=== PATIENT | female | born 2000 | race Caucasian/White ===

== ENCOUNTER 2020-11-15 23:18 | Emergency (ER) | payer OTHER ==
[~2020-11-15 23:18] MED LIST: COLACE 100MG C100 MG PO; MACROBID 100 M100 MG PO; PYRIDIUM100 MG PO
[2020-11-16 02:08] LABS: HEMOGLOBIN 14.9 gm/dl (12.3-15.3); RED BLOOD COUNT 4.57 M/UL (4.00-5.10); WHITE BLOOD COUNT 14.6 K/UL (4.5-11.0)
[2020-11-16 02:29] LABS: BUN/CREATININE RATIO 14 (0-10)
[2020-11-16] MEDS ORDERED: BENTYL 20MG TAB20 MG PO (04:18)
[2020-11-16] MEDS ORDERED: ZOFRAN ODT 4 MG4 MG PO (04:18)
== END 2020-11-16 04:32 | disposition home or self-care (01) ==
LOC: ER1 23:18
PROVIDERS: Physician Assistant
DX: R10.11 Right upper quadrant pain (principal); R10.13 Epigastric pain; R11.0 Nausea; F17.210 Nicotine dependence, cigarettes, uncomplicated
CPT/HCPCS: 80053; 81001; 83690; 84703; 85025; 87086; 96374; 96375; 99284; J1885; J2405; J7030; Q9967

== ENCOUNTER 2021-03-25 13:43 | Emergency (ER) | payer OTHER ==
[~2021-03-25 13:43] MED LIST changes: +BENTYL 20MG TAB20 MG PO; +ZOFRAN ODT 4 MG4 MG PO
[2021-03-25 16:01] LABS: HEMOGLOBIN 12.9 gm/dl (12.3-15.3); RED BLOOD COUNT 3.97 M/UL (4.00-5.10); WHITE BLOOD COUNT 8.1 K/UL (4.5-11.0)
[2021-03-25 16:18] LABS: BUN/CREATININE RATIO 14 (0-10)
[2021-03-25] MEDS ORDERED: IBUPROFEN600 MG PO (17:46)
[2021-03-25] MEDS ORDERED: CEPHALEXIN500 MG PO (17:46)
== END 2021-03-25 17:54 | disposition home or self-care (01) ==
LOC: ER1 13:43
PROVIDERS: Nurse Practitioner
DX: S51.811D Laceration without foreign body of right forearm, subsequent encounter (principal); F17.210 Nicotine dependence, cigarettes, uncomplicated; X58.XXXD Exposure to other specified factors, subsequent encounter
CPT/HCPCS: 73090; 73100; 73130; 80053; 84703; 85025; 99283

== ENCOUNTER 2022-01-02 10:42 | Emergency (ER) | payer MEDICAID ==
[~2022-01-02 10:42] MED LIST changes: +CEPHALEXIN500 MG PO; +IBUPROFEN600 MG PO
[2022-01-02 12:43] LABS: RED BLOOD COUNT 4.91 M/UL (4.00-5.10); WHITE BLOOD COUNT 7.1 K/UL (4.5-11.0)
[2022-01-02 13:11] LABS: BUN/CREATININE RATIO 11 (0-10)
[2022-01-02] MEDS ORDERED: PEPCID AC20 MG PO (13:57)
[2022-01-02] MEDS ORDERED: BENADRYL 50MG C50 MG PO (13:57)
[2022-01-02] MEDS ORDERED: PREDNISONE 50 M50 MG PO (13:57)
== END 2022-01-02 14:15 | disposition home or self-care (01) ==
LOC: ER1 10:42
PROVIDERS: Physician Assistant
DX: R21 Rash and other nonspecific skin eruption (principal); Z86.16 Personal history of COVID-19; F17.210 Nicotine dependence, cigarettes, uncomplicated; Z20.822 Contact with and (suspected) exposure to COVID-19
CPT/HCPCS: 0240U; 80053; 85025; 85652; 86140; 96365; 96375; 99283; J1200; J2930